=== PATIENT | female | born 1990 | race Two or more races ===

== ENCOUNTER 2023-11-09 19:08 | Emergency (ER) | payer OTHER ==
[~2023-11-09] VITALS: Ht 165.1 cm; Wt 72.6 kg
[2023-11-09] MEDS ORDERED: ACETAMINOPHEN 500 MG GEL..CAP PO ONE (20:45)
== END 2023-11-09 22:08 | disposition home or self-care (01) ==
LOC: ER 19:09
DX: M54.2 Cervicalgia (principal); R51.9 Headache, unspecified

== ENCOUNTER 2023-12-16 13:26 | Outpatient (CLI) | payer OTHER | END 2023-12-16 13:32 | disposition home or self-care (01) | LOC: PRENATAL 13:26 | PROVIDERS: ATTEND Obstetrics & Gynecology Maternal & Fetal Medicine | DX: O36.80X0 Pregnancy with inconclusive fetal viability, not applicable or unspecified (principal); Z36.82 Encounter for antenatal screening for nuchal translucency; Z36.9 Encounter for antenatal screening, unspecified; Z14.8 Genetic carrier of other disease; Z3A.14 14 weeks gestation of pregnancy ==

== ENCOUNTER → 2024-01-22 10:55 | Outpatient (CLI) | payer OTHER | END | disposition home or self-care (01) | LOC: PRENATAL 10:55 | PROVIDERS: ATTEND Obstetrics & Gynecology Maternal & Fetal Medicine | DX: O35.3XX0 Maternal care for (suspected) damage to fetus from viral disease in mother, not applicable or unspecified (principal); O44.00 Complete placenta previa NOS or without hemorrhage, unspecified trimester; O36.1999 Maternal care for other isoimmunization, unspecified trimester, other fetus; Z3A.19 19 weeks gestation of pregnancy ==

== ENCOUNTER 2024-04-20 09:25 | Outpatient (CLI) | payer OTHER | END 2024-04-20 09:26 | disposition home or self-care (01) | LOC: PRENATAL 09:25 | PROVIDERS: ATTEND Obstetrics & Gynecology Maternal & Fetal Medicine | DX: O26.849 Uterine size-date discrepancy, unspecified trimester (principal); O36.8199 Decreased fetal movements, unspecified trimester, other fetus; O09.529 Supervision of elderly multigravida, unspecified trimester; O36.1999 Maternal care for other isoimmunization, unspecified trimester, other fetus; Z3A.32 32 weeks gestation of pregnancy ==

== ENCOUNTER 2024-06-06 08:33 | Inpatient (IN) | payer OTHER ==
[~2024-06-06] VITALS: Ht 165.1 cm; Wt 85.3 kg
[2024-06-06 07:46] VITALS: BP 116/75
[2024-06-06] MEDS ORDERED: AMPICILLIN SODIUM 2,000 MG VIAL ONE (08:36)
[2024-06-06] MEDS ORDERED: MISOPROSTOL 50 MCG TABLET ONE (08:45)
[2024-06-06] MEDS ORDERED: MISOPROSTOL 50 MCG TABLET VAG STA (09:02)
[2024-06-06] MEDS ORDERED: AMPICILLIN SODIUM 2,000 MG VIAL IV STA (09:03)
[2024-06-06] MEDS ORDERED: RINGERS SOLUTION,LACTATED 1,000 ML IV SCH (09:15)
[2024-06-06 09:38] LABS: HEMATOCRIT 35.4 % (36.0-45.00); MEAN CELL VOLUME 92.2 fL (80.00-100.00); MEAN CORPUSCULAR HEMOGLOBIN 31.3 pg (27.00-32.0); PLATELET COUNT 280 K/uL (150-450); RED BLOOD COUNT 3.84 M/uL (4.00-6.00); RED CELL DISTRIBUTION WIDTH 13.7 % (11.5-14.5)
[2024-06-06] MEDS ORDERED: PRENATABS RX T1 EACH PO (09:40)
[2024-06-06 09:59] LABS: INR < 0.93; PARTIAL THROMBOPLASTIN TIME 27.8 SECONDS (22.0-34.0); PROTHROMBIN TIME 10.1 SECONDS (9.0-11.5)
[2024-06-06 10:01] LABS: ALBUMIN 2.5 gm/dL (3.4-5.0); BILIRUBIN TOTAL 0.36 mg/dL (0.3-1.2); CALCIUM 8.6 mg/dL (8.5-10.1); CREATININE SERUM 0.58 mg/dL (0.55-1.02); GFR 118.3; GLOBULINA 3.4 G/DL (2.4-3.5); POTASSIUM 3.74 mEq/L (3.5-5.1); TOTAL PROTEIN 5.9 gm/dL (6.4-8.2)
[2024-06-06 11:08] VITALS: BP 134/82
[2024-06-06] MEDS ORDERED: MEPERIDINE HCL/PF 50 MG/ML VIAL IV ONE (11:50)
[2024-06-06] MEDS ORDERED: PROMETHAZINE HCL 25 MG/ML AMPUL ONE (11:50)
[2024-06-06] MEDS ORDERED: PROMETHAZINE HCL 25 MG/ML AMPUL IV ONE (11:50)
[2024-06-06] MEDS ORDERED: AMPICILLIN SODIUM 1,000 MG VIAL IV SCH (13:00)
[2024-06-06] MEDS ORDERED: OXYTOCIN 10 UNITS/ML VIAL ONE (13:23)
[2024-06-06] MEDS ORDERED: ERYTHROMYCIN BASE OPHT 1GM EACH TUBE OP ONE (13:24)
[2024-06-06] MEDS ORDERED: METHYLERGONOVINE MALEATE 0.2 MG/ML AMPUL ONE (14:46)
[2024-06-06] MEDS ORDERED: PROMETHAZINE HCL 50 MG/ML AMPUL IM PRN (15:15)
[2024-06-06] MEDS ORDERED: MEPERIDINE HCL/PF 50 MG/ML VIAL IM PRN (15:15)
[2024-06-06] MEDS ORDERED: METHYLERGONOVINE MALEATE 0.2 MG/ML AMPUL IM STA (15:40)
[2024-06-06] MEDS ORDERED: PROMETHAZINE HCL 50 MG/ML AMPUL IM ONE (15:57)
[2024-06-06] MEDS ORDERED: MORPHINE SULFATE 4 MG/ML VIAL IV ONE ×2 (16:50→17:20)
[2024-06-06 17:56] VITALS: BP 111/72
[2024-06-06] MEDS ORDERED: CEFAZOLIN SODIUM 1,000 MG VIAL IV SCH (20:00)
[2024-06-07 00:34] VITALS: BP 110/64
[2024-06-07 02:01] LABS: HEMATOCRIT 30.9 % (36.0-45.00); HEMOGLOBIN 10.3 g/dL (12.0-15.00); MEAN CELL VOLUME 94.3 fL (80.00-100.00); MEAN CORPUSCULAR HEMOGLOBIN 31.4 pg (27.00-32.0); MEAN CORPUSCULAR HGB CONC 33.3 g/dl (32.0-36.0); PLATELET COUNT 246 K/uL (150-450); RED BLOOD COUNT 3.28 M/uL (4.00-6.00); RED CELL DISTRIBUTION WIDTH 13.6 % (11.5-14.5)
[2024-06-07 08:00] VITALS: BP 123/72
[2024-06-07] MEDS ORDERED: OxyCODONE HCL/APAP UD (PERCOCET) PO SCH (09:00)
[2024-06-07 16:09] VITALS: BP 101/65
[2024-06-08 00:33] VITALS: BP 107/66
[2024-06-08 08:41] VITALS: BP 124/76
[2024-06-08 16:05] VITALS: BP 131/76
[2024-06-08] MEDS ORDERED: FF) RHO(D) IMMUNE GLOBULIN (POM) IM ONE (17:15)
[2024-06-09 01:30] VITALS: BP 126/75
[2024-06-09 08:47] VITALS: BP 121/71
== END 2024-06-09 11:56 | disposition home or self-care (01) | DRG 788 ==
LOC: LDR 08:33 → OB/GYN 08:33
PROVIDERS: Specialist; ADMIT Obstetrics & Gynecology; ATTEND Obstetrics & Gynecology
PROC: 4A1HXCZ Monitoring of Products of Conception, Cardiac Rate, External Approach (ICD-10-PCS; 2024-06-06)
PROC: 3E033VJ Introduction of Other Hormone into Peripheral Vein, Percutaneous Approach (ICD-10-PCS; 2024-06-06)
PROC: 3E0P7VZ Introduction of Hormone into Female Reproductive, Via Natural or Artificial Opening (ICD-10-PCS; 2024-06-06)
PROC: 10D00Z1 Extraction of Products of Conception, Low, Open Approach (ICD-10-PCS; principal; 2024-06-06 13:00)
DX: O82 Encounter for cesarean delivery without indication (principal); Z3A.39 39 weeks gestation of pregnancy; Z37.0 Single live birth